=== PATIENT | male | born 1990 | race African-American/Black ===

== ENCOUNTER 2019-10-05 13:57 | Emergency (ER) | payer SELFPAY ==
[~2019-10-05] VITALS: Ht 177.8 cm; Wt 83.0 kg
[2019-10-05] MEDS ORDERED: IBUPROFEN 600MG TABLET PO ONE (16:15)
[2019-10-05] MEDS ORDERED: HYDROCODONE/ACETAMINOPHEN 5/325MG TABLET PO ONE (17:00)
[2019-10-05 17:19] VITALS: BP 128/73
== END 2019-10-05 17:20 | disposition home or self-care (01) ==
LOC: ER 13:57
DX: M25.571 Pain in right ankle and joints of right foot (principal); X50.1XXA Overexertion from prolonged static or awkward postures, initial encounter; Y93.01 Activity, walking, marching and hiking; Y92.89 Other specified places as the place of occurrence of the external cause; Y99.8 Other external cause status; Z88.2 Allergy status to sulfonamides; Z88.8 Allergy status to other drugs, medicaments and biological substances
CPT/HCPCS: 73590; 73610; 73630; 99284

== ENCOUNTER 2021-04-10 07:35 | Emergency (ER) | payer MEDICAID, OTHER ==
[~2021-04-10] VITALS: Ht 177.8 cm; Wt 98.0 kg
[2021-04-10] MEDS ORDERED: KETOROLAC 60MG/2ML VIAL IM ONE (08:15)
[2021-04-10] MEDS ORDERED: IBUP-2030 MT (10:09)
[2021-04-10 10:41] VITALS: BP 138/70
== END 2021-04-10 10:42 | disposition home or self-care (01) ==
LOC: ER 07:35
DX: S92.354A Nondisplaced fracture of fifth metatarsal bone, right foot, initial encounter for closed fracture (principal); Z88.2 Allergy status to sulfonamides; Z98.890 Other specified postprocedural states; X58.XXXA Exposure to other specified factors, initial encounter; Y93.89 Activity, other specified; Y92.89 Other specified places as the place of occurrence of the external cause; Y99.8 Other external cause status
CPT/HCPCS: 29515; 73610; 73630; 96372; 99284; J1885; Z7610